=== PATIENT | female | born 1950 | race African-American/Black ===

== ENCOUNTER → 2016-11-19 | Outpatient (REF) | payer BC, MEDICARE ==
[~2016-11-19] MED LIST: DIFL150T PO; GLUC4CHW PO; INSUDET SC; INSUH10VL SC; ZEST1TAB6 PO
[2016-11-19 11:28] LABS: ALBUMIN 3.6 GM/DL (3.2-5.2); ALBUMIN/GLOBULIN RATIO 1.03 (1.00-1.93); ALKALINE PHOSPHATASE 81 U/L (45-117); ALT/SGPT 19 U/L (12-78); ANION GAP 8 MEQ/L (8-16); AST/SGOT 14 U/L (15-37); BILIRUBIN,TOTAL 0.7 MG/DL (0.2-1.0); BLOOD UREA NITROGEN 12 MG/DL (7-18); CALCIUM LEVEL 8.7 MG/DL (8.8-10.2); CARBON DIOXIDE LEVEL 26 MEQ/L (21-32); CHLORIDE LEVEL 108 MEQ/L (98-107); CHOLESTEROL LEVEL 221 MG/DL (<200); CREATININE FOR GFR 0.88 MG/DL (0.55-1.02); GLOMERULAR FILTRATION RATE > 60.0 (>45); GLUCOSE, FASTING 104 MG/DL (80-110); POTASSIUM SERUM 3.9 MEQ/L (3.5-5.1); SODIUM LEVEL 142 MEQ/L (136-145); TOTAL PROTEIN 7.1 GM/DL (6.4-8.2); TRIGLYCERIDES LEVEL 85 MG/DL (<150)
== END ==
LOC: M LABDRAW1 10:09
PROVIDERS: ATTEND Emergency Medicine
DX: E11.9 Type 2 diabetes mellitus without complications (principal); E78.2 Mixed hyperlipidemia

== ENCOUNTER → 2018-04-05 | Outpatient (CLI) | payer MEDICARE ==
[2018-04-05 10:33] LABS: ALBUMIN 3.3 GM/DL (3.2-5.2); ALBUMIN/GLOBULIN RATIO 0.92 (1.00-1.93); ALKALINE PHOSPHATASE 80 U/L (45-117); ALT/SGPT 24 U/L (12-78); ANION GAP 5 MEQ/L (8-16); AST/SGOT 16 U/L (7-37); BILIRUBIN,TOTAL 0.7 MG/DL (0.2-1.0); BLOOD UREA NITROGEN 12 MG/DL (7-18); CALCIUM LEVEL 8.7 MG/DL (8.8-10.2); CARBON DIOXIDE LEVEL 32 MEQ/L (21-32); CHLORIDE LEVEL 108 MEQ/L (98-107); CHOLESTEROL LEVEL 232 MG/DL (<200); CHOLESTEROL RISK RATIO 4.218 (<5); CREATININE FOR GFR 0.87 MG/DL (0.55-1.30); GLOMERULAR FILTRATION RATE > 60.0 (>45); GLUCOSE, FASTING 112 MG/DL (70-100); HDL CHOLESTEROL 55 MG/DL (>40); LDL CHOLESTEROL 152.2 MG/DL (<100); NON-HDL-C 177 MG/DL; POTASSIUM SERUM 4.4 MEQ/L (3.5-5.1); SODIUM LEVEL 145 MEQ/L (136-145); TOTAL PROTEIN 6.9 GM/DL (6.4-8.2); TRIGLYCERIDES LEVEL 124 MG/DL (<150)
[2018-04-05 10:45] LABS: ESTIMATED AVERAGE GLUCOSE 148 MG/DL (60-110); HEMOGLOBIN A1c 6.8 %
== END ==
LOC: M LAB 09:34
DX: I10 Essential (primary) hypertension (principal); E78.2 Mixed hyperlipidemia; E11.9 Type 2 diabetes mellitus without complications
CPT/HCPCS: 80053

== ENCOUNTER → 2019-04-18 | Outpatient (REF) | payer MEDICARE, OTHER ==
[~2019-04-18] MED LIST changes: -GLUC4CHW PO; +GLUC4CHW19 PO
[2019-04-18 14:06] LABS: BASO # 0.1 10^3/uL (0.0-0.2); BASO % 0.4 % (0.0-1.0); EOS # 0.2 10^3/uL (0.0-0.50); EOS % 1.7 % (0.0-3.0); HEMATOCRIT 44.8 % (36.0-47.0); HEMOGLOBIN 14.5 g/dl (12.0-15.5); LYMPH # 3.5 10^3/uL (1.5-4.5); LYMPH % 29.5 % (24.0-44.0); MEAN CORPUSCULAR HEMOGLOBIN 27.2 pg (27.0-33.0); MEAN CORPUSCULAR HGB CONC 32.4 g/dl (32.0-36.5); MEAN CORPUSCULAR VOLUME 84.1 fl (80.0-96.0); MONO # 0.7 10^3/uL (0.0-0.8); MONO % 6.3 % (0.0-5.0); NEUTROPHILS # 7.2 10^3/uL (1.8-7.7); NEUTROPHILS % 61.7 % (36.0-66.0); PLATELET COUNT, AUTOMATED 295 10^3/uL (150-450); RED BLOOD COUNT 5.33 10^6/uL (4.00-5.40); WHITE BLOOD COUNT 11.8 10^3/uL (4.0-10.0)
[2019-04-18 14:15] LABS: ALBUMIN 3.6 GM/DL (3.2-5.2); ALT/SGPT 21 U/L (12-78); BILIRUBIN,TOTAL 0.5 MG/DL (0.2-1.0); BLOOD UREA NITROGEN 13 MG/DL (7-18); CALCIUM LEVEL 9.6 MG/DL (8.8-10.2); CARBON DIOXIDE LEVEL 30 MEQ/L (21-32); CHLORIDE LEVEL 107 MEQ/L (98-107); CHOLESTEROL LEVEL 219 MG/DL (<200); CREATININE FOR GFR 1.01 MG/DL (0.55-1.30); GLOMERULAR FILTRATION RATE > 60.0 (>45); GLUCOSE, FASTING 146 MG/DL (70-100); HDL CHOLESTEROL 46 MG/DL (>40); LDL CHOLESTEROL 152 MG/DL (<100); NON-HDL-C 173 MG/DL; POTASSIUM SERUM 4.9 MEQ/L (3.5-5.1); SODIUM LEVEL 142 MEQ/L (136-145); TOTAL PROTEIN 7.4 GM/DL (6.4-8.2); TRIGLYCERIDES LEVEL 103 MG/DL (<150)
[2019-04-18 14:34] LABS: HEMOGLOBIN A1c 8.5 %
[2019-04-18 14:42] LABS: MALB URINE SIEMENS 36.1 MG/L; MAU/CREAT RATIO 17.2 MCG/MG (0.0-30.0)
== END ==
LOC: M LABDRAW1 12:34
PROVIDERS: ATTEND Physician Assistant
DX: Z00.00 Encounter for general adult medical examination without abnormal findings (principal); E11.9 Type 2 diabetes mellitus without complications; E78.2 Mixed hyperlipidemia; Z11.59 Encounter for screening for other viral diseases; R53.83 Other fatigue; Z79.4 Long term (current) use of insulin; Z79.899 Other long term (current) drug therapy
CPT/HCPCS: 36415; 80053; 80061; 82043; 82270; 83036; 85025; G0472

== ENCOUNTER 2019-09-15 13:11 | Emergency (ER) | payer MEDICARE, OTHER ==
[~2019-09-15] VITALS: Ht 160 cm; Wt 68.2 kg
[2019-09-15] MEDS ORDERED: FLUC200T2 PO (13:20)
[2019-09-15] MEDS ORDERED: TRUL10IN SQ (13:20)
--- NOTE | 2019-09-15 14:50 | REP ---
KUB ABDOMEN/PELVIS: Two KUB films of abdomen and pelvis performed. There is moderate fecal material in the right colon. No dilated small bowel loops are seen, with no radiographic evidence of small bowel obstruction. A couple of phleboliths are seen in the pelvis. There are degenerative changes of the spine and hips. IMPRESSION: Moderate fecal retention with no evidence of obstruction. Electronically Signed by Chaz Chowdhury MD 09/15/2019 04:34 P
[2019-09-15] MEDS ORDERED: KETOROLAC 30 MG/ML VIAL (J1885) IV ONE (15:15)
[2019-09-15] MEDS ORDERED: NS 500 ML IV ONE (15:15)
[2019-09-15] MEDS ORDERED: MAGNESIUM CITRATE 300 ML BTL PO ONE (15:15)
[2019-09-15 15:47] LABS: BASO # 0.1 10^3/uL (0.0-0.2); BASO % 0.4 % (0.0-1.0); EOS # 0.1 10^3/uL (0.0-0.5); EOS % 0.4 % (0.0-3.0); HEMATOCRIT 46.5 % (36.0-47.0); HEMOGLOBIN 15.1 g/dl (12.0-15.5); LYMPH # 2.2 10^3/uL (1.5-5.0); MEAN CORPUSCULAR HEMOGLOBIN 26.9 pg (27.0-33.0); MEAN CORPUSCULAR HGB CONC 32.5 g/dl (32.0-36.5); MEAN CORPUSCULAR VOLUME 82.9 fl (80.0-96.0); MONO # 0.6 10^3/uL (0.0-0.8); MONO % 3.6 % (0.0-5.0); NEUTROPHILS % 82.1 % (36.0-66.0); PLATELET COUNT, AUTOMATED 276 10^3/uL (150-450); RED BLOOD COUNT 5.61 10^6/uL (4.00-5.40)
[2019-09-15 16:19] LABS: ALBUMIN 3.5 GM/DL (3.2-5.2); ALT/SGPT 23 U/L (12-78); BILIRUBIN,DIRECT 0.2 MG/DL (0.0-0.2); BILIRUBIN,TOTAL 0.8 MG/DL (0.2-1.0); BLOOD UREA NITROGEN 10 MG/DL (7-18); CALCIUM LEVEL 9.4 MG/DL (8.8-10.2); CARBON DIOXIDE LEVEL 23 MEQ/L (21-32); CHLORIDE LEVEL 106 MEQ/L (98-107); CREATININE FOR GFR 1.14 MG/DL (0.55-1.30); GLOMERULAR FILTRATION RATE > 60.0 (>45); GLUCOSE, FASTING 234 MG/DL (70-100); LIPASE 302 U/L (73-393); POTASSIUM SERUM 4.1 MEQ/L (3.5-5.1); SODIUM LEVEL 139 MEQ/L (136-145); TOTAL PROTEIN 7.5 GM/DL (6.4-8.2)
[2019-09-15] MEDS ORDERED: MACR100C43 PO (17:25)
[2019-09-15] MEDS ORDERED: COLA100C5 PO (17:25)
[2019-09-15 18:09] VITALS: BP 127/61
== END 2019-09-15 18:18 | disposition home or self-care (01) ==
LOC: M ED 13:11
DX: K59.00 Constipation, unspecified (principal); N39.0 Urinary tract infection, site not specified; D72.829 Elevated white blood cell count, unspecified; E11.9 Type 2 diabetes mellitus without complications; Z79.84 Long term (current) use of oral hypoglycemic drugs; Z79.899 Other long term (current) drug therapy
CPT/HCPCS: 74018; 80048; 80076; 81001; 83690; 85025; 87086; 96361; 96374; 99284; J1885

== ENCOUNTER → 2019-12-01 | Outpatient (REF) | payer MEDICARE, OTHER ==
[~2019-12-01] MED LIST changes: +COLA100C5 PO; +FLUC200T2 PO; +MACR100C43 PO; +TRUL10IN SQ
[2019-12-01 10:11] LABS: ALBUMIN 3.5 GM/DL (3.2-5.2); ALT/SGPT 32 U/L (12-78); BILIRUBIN,TOTAL 0.8 MG/DL (0.2-1.0); BLOOD UREA NITROGEN 9 MG/DL (7-18); CALCIUM LEVEL 9.1 MG/DL (8.8-10.2); CARBON DIOXIDE LEVEL 31 MEQ/L (21-32); CHLORIDE LEVEL 104 MEQ/L (98-107); CREATININE FOR GFR 0.88 MG/DL (0.55-1.30); GLOMERULAR FILTRATION RATE > 60.0 (>45); GLUCOSE, FASTING 160 MG/DL (70-100); POTASSIUM SERUM 4.2 MEQ/L (3.5-5.1); SODIUM LEVEL 140 MEQ/L (136-145); TOTAL PROTEIN 7.2 GM/DL (6.4-8.2)
[2019-12-01 10:46] LABS: HEMOGLOBIN A1c 8.2 %
== END ==
LOC: M LABDRAW1 07:36
PROVIDERS: ATTEND Physician Assistant
DX: E11.9 Type 2 diabetes mellitus without complications (principal)

== ENCOUNTER → 2020-03-01 | Outpatient (CLI) | payer MEDICARE, OTHER ==
[2020-03-01 09:33] LABS: ALBUMIN 3.4 GM/DL (3.2-5.2); ALT/SGPT 37 U/L (12-78); BILIRUBIN,TOTAL 0.5 MG/DL (0.2-1.0); BLOOD UREA NITROGEN 13 MG/DL (7-18); CALCIUM LEVEL 8.8 MG/DL (8.8-10.2); CARBON DIOXIDE LEVEL 28 MEQ/L (21-32); CHLORIDE LEVEL 107 MEQ/L (98-107); CREATININE FOR GFR 0.92 MG/DL (0.55-1.30); GLOMERULAR FILTRATION RATE > 60.0 (>39); GLUCOSE, FASTING 205 MG/DL (70-100); POTASSIUM SERUM 4.1 MEQ/L (3.5-5.1); SODIUM LEVEL 141 MEQ/L (136-145); TOTAL PROTEIN 7.1 GM/DL (6.4-8.2)
[2020-03-01 09:54] LABS: HEMOGLOBIN A1c 8.7 %
== END ==
LOC: M LAB 07:57
PROVIDERS: ATTEND Physician Assistant
DX: E11.9 Type 2 diabetes mellitus without complications (principal)

== ENCOUNTER 2020-03-16 07:55 | Outpatient (RCR) | payer MEDICARE, OTHER | END 2020-03-20 | LOC: M PT 07:55 | PROVIDERS: ATTEND Physician Assistant | DX: M25.512 Pain in left shoulder (principal) ==

== ENCOUNTER → 2020-04-20 | Outpatient (RCR) | payer MEDICARE, OTHER | LOC: M PT 03-21 08:34 | PROVIDERS: ATTEND Physician Assistant | DX: M25.512 Pain in left shoulder (principal) ==

== ENCOUNTER → 2020-05-26 | Outpatient (CLI) | payer MEDICARE, OTHER ==
[2020-05-26 13:29] LABS: BLOOD UREA NITROGEN 12 MG/DL (7-18); CALCIUM LEVEL 9.6 MG/DL (8.8-10.2); CARBON DIOXIDE LEVEL 30 MEQ/L (21-32); CHLORIDE LEVEL 102 MEQ/L (98-107); CREATININE FOR GFR 1.02 MG/DL (0.55-1.30); GLOMERULAR FILTRATION RATE > 60.0 (>39); GLUCOSE, FASTING 334 MG/DL (70-100); POTASSIUM SERUM 4.1 MEQ/L (3.5-5.1); SODIUM LEVEL 137 MEQ/L (136-145)
[2020-05-26 13:37] LABS: HEMOGLOBIN A1c 13.3 %
[2020-05-26 13:41] LABS: MALB URINE SIEMENS 31.3 MG/L; MAU/CREAT RATIO 19.8 MCG/MG (0.0-30.0)
== END ==
LOC: M LAB 12:20
PROVIDERS: ATTEND Physician Assistant
DX: E11.9 Type 2 diabetes mellitus without complications (principal)

== ENCOUNTER → 2020-07-30 | Outpatient (REF) | payer MEDICARE, OTHER | LOC: M LAB REF 13:13 | PROVIDERS: ATTEND Physician Assistant | DX: Z12.11 Encounter for screening for malignant neoplasm of colon (principal) ==

== ENCOUNTER → 2020-08-30 | Outpatient (CLI) | payer MEDICARE, OTHER ==
[2020-08-30 12:45] LABS: CHOLESTEROL RISK RATIO 4.166 (<5)
[2020-08-30 13:13] LABS: HEMOGLOBIN A1c 9.7 %
== END ==
LOC: M LAB 11:17
PROVIDERS: ATTEND Family Medicine
DX: E11.65 Type 2 diabetes mellitus with hyperglycemia (principal)

== ENCOUNTER 2021-02-15 12:53 | Emergency (ER) | payer MEDICARE, OTHER ==
[~2021-02-15] VITALS: Ht 160 cm; Wt 64.1 kg
[~2021-02-15 12:53] MED LIST changes: -GLUC4CHW19 PO; +SFHGLU4TA PO
[2021-02-15] MEDS ORDERED: METF-838 PO (13:00)
[2021-02-15 14:45] LABS: HEMATOCRIT 43.4 % (36.0-47.0); HEMOGLOBIN 14.3 g/dl (12.0-15.5); MEAN CORPUSCULAR HEMOGLOBIN 26.7 pg (27.0-33.0); MEAN CORPUSCULAR HGB CONC 32.9 g/dl (32.0-36.5); PLATELET COUNT, AUTOMATED 339 10^3/uL (150-450); RED BLOOD COUNT 5.36 10^6/uL (4.00-5.40); WHITE BLOOD COUNT 10.7 10^3/uL (4.0-10.0)
[2021-02-15 15:30] LABS: ATYPICAL LYMPH 16 % (0-5); LYMPHOCYTES 8 % (16-44); MONOCYTES 2 % (0-5); NEUTROPHILS 70 % (28-66); PLATELET ESTIMATE NORMAL (NORMAL)
[2021-02-15] MEDS ORDERED: CEPHALEXIN 500 MG CAP PO ONE (16:20)
[2021-02-15] MEDS ORDERED: POTASSIUM CHLORIDE 10 MEQ SR TABLET PO ONE (16:20)
[2021-02-15] MEDS ORDERED: CEPH500C PO (16:21)
[2021-02-15 16:50] VITALS: BP 121/60
== END 2021-02-15 16:51 | disposition home or self-care (01) ==
LOC: M ED 12:53
DX: N39.0 Urinary tract infection, site not specified (principal); E87.6 Hypokalemia; E11.9 Type 2 diabetes mellitus without complications; Z79.84 Long term (current) use of oral hypoglycemic drugs

== ENCOUNTER 2021-02-21 05:49 | Emergency (ER) | payer MEDICARE, OTHER ==
[~2021-02-21] VITALS: Ht 160 cm; Wt 66.7 kg
[~2021-02-21 05:49] MED LIST changes: +CEPH500C PO; +METF-838 PO
[2021-02-21 06:35] LABS: BASO # 0.1 10^3/uL (0.0-0.2); BASO % 0.5 % (0.0-1.0); EOS # 0.2 10^3/uL (0.0-0.5); EOS % 1.4 % (0.0-3.0); HEMATOCRIT 38.4 % (36.0-47.0); HEMOGLOBIN 12.5 g/dl (12.0-15.5); LYMPH # 3.1 10^3/uL (1.5-5.0); LYMPH % 25.4 % (24.0-44.0); MEAN CORPUSCULAR HEMOGLOBIN 26.6 pg (27.0-33.0); MEAN CORPUSCULAR HGB CONC 32.6 g/dl (32.0-36.5); MEAN CORPUSCULAR VOLUME 81.7 fl (80.0-96.0); MONO # 1.4 10^3/uL (0.0-0.8); MONO % 11.9 % (2.0-8.0); NEUTROPHILS # 7.2 10^3/uL (1.5-8.5); NEUTROPHILS % 59.6 % (36.0-66.0); PLATELET COUNT, AUTOMATED 473 10^3/uL (150-450); WHITE BLOOD COUNT 12.1 10^3/uL (4.0-10.0)
--- NOTE | 2021-02-21 06:46 | REPVR ---
PROCEDURE INFORMATION: Exam: XR Chest Exam date and time: 02/21/2021 6:30 AM Age: 70 years old Clinical indication: Other: Chest pain TECHNIQUE: Imaging protocol: XR of the chest. Views: 1 view. COMPARISON: No relevant prior studies available. FINDINGS: Lungs: Low lung volumes. Mild right lung base atelectasis. Small ground-glass opacities in the left lung base may represent atelectasis, however, pneumonia should be ruled out clinically. Pleural spaces: Blunting of bilateral CP angles likely small effusions. Heart/Mediastinum: Unremarkable. No cardiomegaly. Bones/joints: Unremarkable. IMPRESSION: Low lung volumes. Mild right lung base atelectasis. Small ground-glass opacities in the left lung base may represent atelectasis, however, pneumonia should be ruled out clinically. Blunting of bilateral CP angles likely small effusions. Electronically signed by: Kacy Villasenor On 02/21/2021 06:45:46 AM
[2021-02-21 07:06] LABS: BLOOD UREA NITROGEN 8 MG/DL (7-18); CALCIUM LEVEL 8.9 MG/DL (8.8-10.2); CARBON DIOXIDE LEVEL 29 MEQ/L (21-32); CHLORIDE LEVEL 104 MEQ/L (98-107); CREATININE FOR GFR 0.79 MG/DL (0.55-1.30); GLOMERULAR FILTRATION RATE > 60.0 (>39); GLUCOSE, FASTING 190 MG/DL (70-100); POTASSIUM SERUM 4.3 MEQ/L (3.5-5.1); SODIUM LEVEL 140 MEQ/L (136-145)
[2021-02-21] MEDS ORDERED: KETOROLAC 30 MG/ML 1ML VIAL IV ONE (07:35)
[2021-02-21] MEDS ORDERED: ACETAMINOPHEN 500 MG TAB PO ONE (07:35)
[2021-02-21 07:52] LABS: CPK CREATINE PHOSPHOKINASE 49 U/L (26-192)
[2021-02-21] MEDS ORDERED: ISOVUE-370 76% 100ML VIAL As Ordered ONE (07:58)
[2021-02-21 08:02] LABS: ALBUMIN 2.5 GM/DL (3.2-5.2); BILIRUBIN,DIRECT 0.1 MG/DL (0.0-0.2); BILIRUBIN,TOTAL 0.5 MG/DL (0.2-1.0); TOTAL PROTEIN 7.3 GM/DL (6.4-8.2)
[2021-02-21 08:06] LABS: ERYTHROCYTE SEDIMENTATION RATE 59 mm/hr (0-30)
--- NOTE | 2021-02-21 08:30 | REP ---
INDICATION: pleuritic CP COMPARISON: None. TECHNIQUE: Axial contrast enhanced images from the thoracic inlet to the upper abdomen using pulmonary embolus technique with multiplanar re-formations. 75 ml Isovue 370 intravenous contrast material administered without complication. This CT examination was performed using the following dose reduction techniques: Automated exposure control, adjustment of mA and/or kv according to the patient's size, and use of iterative reconstruction technique. FINDINGS: Satisfactory enhancement of the pulmonary vasculature is achieved and 2-3rd order pulmonary emboli to the bilateral lower lobes noted along with moderate peripheral based consolidations involving the left lower lobe, right lower lobe, and lingula. Significant mediastinal and hilar adenopathy is appreciated. No effusion. No pneumothorax. Thoracic aorta appears normal. Atherosclerotic changes to the coronary arteries noted without cardiomegaly or pericardial effusion. Upper abdomen demonstrates normal bilateral adrenal glands. Surrounding musculoskeletal structures are intact. IMPRESSION: 1. Pulmonary emboli to the bilateral lower lobes with associated peripheral areas of atelectasis/consolidation. 2. Significant mediastinal/hilar adenopathy warrants further investigation. <Electronically signed by Shon López > 02/21/21 [id number]
[2021-02-21] MEDS ORDERED: CEPH500C PO (09:31)
[2021-02-21] MEDS ORDERED: ALBU8.5H INH (09:31)
--- NOTE | 2021-02-21 09:50 | REP ---
INDICATION: PE ?dvt COMPARISON: None. TECHNIQUE: Chowdhury scale and color Doppler evaluation using linear high frequency transducer. FINDINGS: Ultrasound examination of the right and left lower extremity deep venous structures from the common femoral vein through the calf/ankle to include the peroneal, and tibial veins demonstrates normal compressibility flow and wave patterns in response to respiration and augmentation. There is no evidence for deep venous thrombosis. Contralateral CFV is patent and normal. IMPRESSION: No evidence for deep venous thrombosis. <Electronically signed by Shon López > 02/21/21 0935
[2021-02-21] MEDS ORDERED: ELIQ5TAB PO (10:43)
--- NOTE | 2021-02-21 11:29 | CR.PDOC ---
General Date of Consultation: Feb 21, 2021 Referring Provider: Melani Lindsay MD Consultation REASON FOR CONSULTATION/CHIEF COMPLAINT: Pulmonary Embolus HISTORY OF PRESENT ILLNESS: Mrs. Cruz is a 70 year old female with NIDDM and recent COVID 19 respiratory infection who presents to the ED for chest pain. On February 10 she was not feeling well. She had malaise, dyspnea, and diarrhea. She went for testing and was found to be COVID 19 positive. She was told to self quarantine at home. Patient believes this is the 10th day. Since being tested she feels much better. Denies fever, malaise, dyspnea, cough, or diarrhea. About 3 days ago, she started to have chest pain which was worse when she lies down and better when sitting up. She found that she could sleep sitting up. Otherwise, she had pleuritic chest pain. She came to the ED for evaluation. While in the ED, her vitals have been stable. She had no tachycardia, no tachypnea, and no hypoxia. Her troponin was negative. CT angio of the chest was positive for bilateral pulmonary emboli to the bilateral lower lobes. I went down to the ED to evaluate the patient. She was very cheerful and not in any distress. She completed her sentences without problems. She denied any fever/chills, dyspnea, cough, abdominal pain, dysuria, or rashes. I gave her an option to either be admitted for observation overnight and be discharged tomorrow morning or to go home today with anticoagulation. She wanted to go home. I will send apixaban to her pharmacy. I discuss this with the ED attending, Dr. Gonzalez. Patient also requested that I touch base with her PCP's office. I called and relayed this information to Dr. Steen's nurse. ALLERGIES: Please see below. HOME MEDICATIONS: Please see below. PAST MEDICAL HISTORY: 1. NIDDM 2 2. COVID 19 infection in January 2021 PAST SURGICAL HISTORY: 1. Hysterectomy FAMILY HISTORY: Father: Heart disease and pacemaker SOCIAL HISTORY: Tobacco use: Former Illicit drug use: Denies REVIEW OF SYSTEMS: CONSTITUTIONAL: Denies any fever or chills. ENT: Denies sore throat. RESPIRATORY: Denies shortness of breath. Denies cough. CARDIOVASCULAR: Reports pleuritic chest pain. GASTROINTESTINAL: Denies abdominal pain. Denies diarrhea. GENITOURINARY: Denies dysuria. CUTANEOUS: Denies rashes. MUSCULOSKELETAL: Denies muscle weakness. NEUROLOGICAL: Sometimes has neuropathy of feet. PSYCHOLOGICAL: Denies anxiety. Denies depression. PHYSICAL EXAMINATION: VITAL SIGNS: Please see below. GENERAL: Comfortable, in no apparent distress. HEENT: Head normocephalic/atraumatic, EOMI, sclera clear. NECK: Supple. RESPIRATORY: Lungs clear to auscultation bilaterally, no rales, wheeze or rhonchi. CARDIOVASCULAR: Regular rate and rhythm. ABDOMEN: Soft, nontender, no guarding or rebound tenderness. Normal bowel sounds. MUSCLE SKELETAL: Muscle strength 5/5 in all extremities. NEUROLOGICAL: CN 312 grossly intact, no focal deficits noted. PSYCHOLOGICAL: Normal mood and affect LABORATORY DATA: Please see below. ASSESSMENT/PLAN: 1. Bilateral pulmonary embolic -Most likely provoked from COVID 19 infection -Patient will most likely need at least 3 month of anticoagulation -PESI score of 70 which is Class II, Low Risk -Follow instruction for apixaban. 10mg BID for 1 week followed by 5mg BID 2. Diabetes mellitus -Continue diabetic medication 3. Significant mediastinal/hilar adenopathy -Possible Sarcoidosis vs Malignancy vs Viral infection -Patient may need outpatient pulmonary referral for biopsy Disposition: Follow up with your PCP for ER follow up. Vital Signs/I&O Vital Signs Date Time Temp Pulse Resp B/P (MAP) Pulse Ox O2 Delivery O2 Flow Rate FiO2 02/21/21 08:49 76 16 96 Room Air 02/21/21 08:05 127/62 (83) 02/21/21 05:50 97.9 Laboratory Data Labs 24H Laboratory Tests 2 02/21/21 06:24: Immature Granulocyte % (Auto) 1.2, Neutrophils (%) (Auto) 59.6, Lymphocytes (%) (Auto) 25.4, Monocytes (%) (Auto) 11.9H, Eosinophils (%) (Auto) 1.4, Basophils (%) (Auto) 0.5, Neutrophils # (Auto) 7.2, Lymphocytes # (Auto) 3.1, Monocytes # (Auto) 1.4H, Eosinophils # (Auto) 0.2, Basophils # (Auto) 0.1, Nucleated Red Blood Cells % (auto) 0.0, Erythrocyte Sedimentation Rate 59H, Anion Gap 7L, Glomerular Filtration Rate > 60.0, Calcium Level 8.9, Total Bilirubin 0.5, Direct Bilirubin 0.1, Aspartate Amino Transf (AST/SGOT) 23, Alanine Aminotransferase (ALT/SGPT) 29, Alkaline Phosphatase 74, Total Creatine Kinase 49, Total Protein 7.3, Albumin 2.5L, Albumin/Globulin Ratio 0.5L, Lipase 364 02/21/21 06:29: POC Troponin I (Misc) 0.00 CBC/BMP Laboratory Tests 02/21/21 06:24 Allergies Coded Allergies: No Known Allergies (Unverified , 05/23/15) Home Medications Scheduled Apixaban (Eliquis) 5 Mg Tablet, 5 MG PO ASDIRECTED, #74 10 MG (2 TABS) TWICE PER DAY FOR 7 DAYS THEN 5 MG (1 TAB) TWICE PER DAY Cephalexin (Cephalexin) 500 Mg Capsule, 500 MG PO BID, (Reported) FILLED 02/15/21 FOR 5 DAYS Metformin HCl (Metformin HCl ER) 500 Mg Tab.er.24h, 1,000 MG PO QHS, (Reported) Scheduled PRN Albuterol Sulfate (Albuterol Sulfate Hfa) 8.5 Gm Hfa.aer.ad, 2 PUFFS INH QID PRN for SHORTNESS OF BREATH, (Reported) MAGDALENA MENDEZ DO Feb 21, 2021 11:29
[2021-02-21 11:34] VITALS: BP 109/55
--- NOTE | 2021-02-21 19:48 | ECGEPIP ---
[facility] - ED Test Date: 2021-02-21 Pat Name: YVON CLAY Department: Room: - Gender: Female Block Tester: sho : 1950 Requested By: MARK Green Order Number: [id number] Reading MD: Long Roberson Measurements Intervals [place] Rate: 86 P: 25 IA: 126 QRS: 19 QRSD: 80 T: 16 QT: 370 QTc: 442 Interpretive Statements Normal sinus rhythm POOR R WAVE PROGRESSION NONSPECIFIC T WAVE ABNORMALITY(S) NO PRIORS FOR COMPARISON Electronically Signed on 02-21-2021 19:48:10 EDT by Long Roberson
== END 2021-02-21 11:44 | disposition home or self-care (01) ==
LOC: M ED 05:49
DX: I26.99 Other pulmonary embolism without acute cor pulmonale (principal); E11.9 Type 2 diabetes mellitus without complications; Z79.899 Other long term (current) drug therapy; Z79.84 Long term (current) use of oral hypoglycemic drugs; Z79.01 Long term (current) use of anticoagulants; Z87.891 Personal history of nicotine dependence
CPT/HCPCS: 71045; 71275; 80048; 80076; 82550; 83690; 84484; 85025; 85652; 93005; 93041; 93970; 94760; 96374; 99285; J1885; Q9967

== ENCOUNTER → 2021-03-11 | Outpatient (CLI) | payer MEDICARE, OTHER ==
[~2021-03-11] MED LIST changes: +ALBU8.5H INH; +ELIQ5TAB PO
[2021-03-11 12:13] LABS: HEMOGLOBIN A1c 8.8 %
[2021-03-11 12:43] LABS: ALBUMIN 3.2 GM/DL (3.2-5.2); ALT/SGPT 22 U/L (12-78); BILIRUBIN,TOTAL 0.4 MG/DL (0.2-1.0); BLOOD UREA NITROGEN 9 MG/DL (7-18); CALCIUM LEVEL 8.7 MG/DL (8.8-10.2); CARBON DIOXIDE LEVEL 29 MEQ/L (21-32); CHLORIDE LEVEL 106 MEQ/L (98-107); CHOLESTEROL LEVEL 234 MG/DL (<200); CHOLESTEROL RISK RATIO 4.875 (<5); CREATININE FOR GFR 0.69 MG/DL (0.55-1.30); GLOMERULAR FILTRATION RATE > 60.0 (>39); GLUCOSE, FASTING 119 MG/DL (70-100); HDL CHOLESTEROL 48 MG/DL (>40); LDL CHOLESTEROL 163 MG/DL (<100); NON-HDL-C 186 MG/DL; POTASSIUM SERUM 3.9 MEQ/L (3.5-5.1); SODIUM LEVEL 140 MEQ/L (136-145); TRIGLYCERIDES LEVEL 115 MG/DL (<150)
== END ==
LOC: M LAB 09:57
PROVIDERS: ATTEND Family Medicine
DX: E11.65 Type 2 diabetes mellitus with hyperglycemia (principal)

== ENCOUNTER → 2021-06-17 | Outpatient (CLI) | payer MEDICARE, OTHER ==
[2021-06-17 10:05] LABS: BASO % 0.4 % (0.0-1.0); EOS # 0.3 10^3/uL (0.0-0.5); EOS % 2.5 % (0.0-3.0); HEMATOCRIT 43.6 % (36.0-47.0); HEMOGLOBIN 13.9 g/dl (12.0-15.5); LYMPH # 3.8 10^3/uL (1.5-5.0); LYMPH % 36.5 % (24.0-44.0); MEAN CORPUSCULAR HEMOGLOBIN 26.5 pg (27.0-33.0); MEAN CORPUSCULAR HGB CONC 31.9 g/dl (32.0-36.5); MEAN CORPUSCULAR VOLUME 83.2 fl (80.0-96.0); MONO # 0.7 10^3/uL (0.0-0.8); MONO % 6.4 % (2.0-8.0); NEUTROPHILS # 5.6 10^3/uL (1.5-8.5); PLATELET COUNT, AUTOMATED 267 10^3/uL (150-450); RED BLOOD COUNT 5.24 10^6/uL (4.00-5.40); WHITE BLOOD COUNT 10.4 10^3/uL (4.0-10.0)
[2021-06-17 10:17] LABS: HEMOGLOBIN A1c 6.9 %
[2021-06-17 10:23] LABS: ALBUMIN 3.3 GM/DL (3.2-5.2); ALT/SGPT 26 U/L (12-78); BILIRUBIN,TOTAL 0.5 MG/DL (0.2-1.0); BLOOD UREA NITROGEN 14 MG/DL (7-18); CALCIUM LEVEL 9.3 MG/DL (8.8-10.2); CARBON DIOXIDE LEVEL 31 MEQ/L (21-32); CHLORIDE LEVEL 110 MEQ/L (98-107); CHOLESTEROL LEVEL 157 MG/DL (<200); CHOLESTEROL RISK RATIO 2.492 (<5); CREATININE FOR GFR 0.84 MG/DL (0.55-1.30); GLOMERULAR FILTRATION RATE > 60.0 (>39); GLUCOSE, FASTING 127 MG/DL (70-100); HDL CHOLESTEROL 63 MG/DL (>40); LDL CHOLESTEROL 83 MG/DL (<100); NON-HDL-C 94 MG/DL; POTASSIUM SERUM 4.7 MEQ/L (3.5-5.1); SODIUM LEVEL 144 MEQ/L (136-145); TOTAL PROTEIN 6.8 GM/DL (6.4-8.2); TRIGLYCERIDES LEVEL 56 MG/DL (<150)
[2021-06-17 10:29] LABS: MALB URINE SIEMENS 19.4 MG/L; MAU/CREAT RATIO 15.7 MCG/MG (0.0-30.0)
== END ==
LOC: M LAB 08:53
PROVIDERS: ATTEND Family Medicine
DX: E11.65 Type 2 diabetes mellitus with hyperglycemia (principal)

== ENCOUNTER → 2021-06-19 | Outpatient (CLI) | payer MEDICARE, OTHER ==
--- NOTE | 2021-06-19 08:43 | REP ---
INDICATION: ABNORMAL FINDING OF LUNG FIELD. Prior CT pulmonary angiogram from February 21, 2021 showed a bilateral pulmonary emboli, evidence of COVID pneumonia, and hilar or mediastinal lymphadenopathy. COMPARISON: Comparison CT pulmonary angiogram is from February 21, 2021. TECHNIQUE: Helical scanning is acquired. 3 mm axial images are generated. Coronal and sagittal MPR and coronal MIP images are generated. FINDINGS: A noncontrast CT study was performed as requested. The bilateral hilar nodes appear improved or resolved although this is somewhat difficult in the absence of contrast. The AP window region lymph nodes seen on the prior study is definitely smaller, 6 mm in short axis dimension today, previously 14 mm. No new adenopathy is appreciated. No comment can be made about the status of the pulmonary emboli in the absence of IV contrast. The peripheral infiltrates have improved bilaterally and there are mild areas of subpleural fibrosis in the left lower lobe, right lower lobe and left upper lobe where prior study showed infiltrates. No new infiltrate is seen. There is no evidence of pleural or pericardial effusion. Is in the upper abdomen normal adrenal glands are observed. The visualized upper abdominal structures are otherwise unremarkable. Multiple nodular densities are noted in the breast soft tissues bilaterally, no one appears suspicious over any other. No bony destructive lesion is appreciated. IMPRESSION: Previously noted pulmonary parenchymal infiltrates have resolved and there is some subpleural fibrosis bilaterally. The adenopathy is improved. <Electronically signed by Cb Amato > 06/19/21 [id number]
== END ==
LOC: M PLAIMG 07:11
PROVIDERS: ATTEND Nurse Practitioner Family
DX: R91.8 Other nonspecific abnormal finding of lung field (principal)

== ENCOUNTER 2021-09-07 05:20 | Observation (INO) | payer MEDICARE, OTHER ==
[2021-09-07] MEDS ORDERED: LISI-898 PO (05:58)
[2021-09-07] MEDS ORDERED: ATOR1TAB19 PO (05:59)
[2021-09-07 06:08] LABS: BASO % 0.4 % (0.0-1.0); EOS # 0.3 10^3/uL (0.0-0.5); EOS % 2.5 % (0.0-3.0); HEMATOCRIT 44.3 % (36.0-47.0); HEMOGLOBIN 14.5 g/dl (12.0-15.5); LYMPH # 2.5 10^3/uL (1.5-5.0); LYMPH % 24.6 % (24.0-44.0); MEAN CORPUSCULAR HGB CONC 32.7 g/dl (32.0-36.5); MEAN CORPUSCULAR VOLUME 82.3 fl (80.0-96.0); MONO # 0.8 10^3/uL (0.0-0.8); NEUTROPHILS # 6.4 10^3/uL (1.5-8.5); NEUTROPHILS % 64.2 % (36.0-66.0); PLATELET COUNT, AUTOMATED 274 10^3/uL (150-450); RED BLOOD COUNT 5.38 10^6/uL (4.00-5.40)
[2021-09-07 06:19] LABS: BLOOD UREA NITROGEN 10 MG/DL (7-18); CALCIUM LEVEL 8.8 MG/DL (8.8-10.2); CARBON DIOXIDE LEVEL 28 MEQ/L (21-32); CHLORIDE LEVEL 110 MEQ/L (98-107); CREATININE FOR GFR 0.88 MG/DL (0.55-1.30); GLOMERULAR FILTRATION RATE > 60.0 (>39); GLUCOSE, FASTING 129 MG/DL (70-100); POTASSIUM SERUM 3.7 MEQ/L (3.5-5.1); SODIUM LEVEL 143 MEQ/L (136-145)
[2021-09-07 06:21] LABS: INR 0.94; PARTIAL THROMBOPLASTIN TIME 29.1 SECONDS (25.9-37.0); PROTHROMBIN TIME 12.9 SECONDS (12.7-14.5)
[2021-09-07 06:23] LABS: MB/CK RELATIVE INDEX 1.96 (< OR =4)
--- NOTE | 2021-09-07 07:26 | REPVR ---
PROCEDURE INFORMATION: Exam: XR Chest Exam date and time: 09/07/2021 5:56 AM Age: 71 years old Clinical indication: Pain; Other: CVA TECHNIQUE: Imaging protocol: XR of the chest. Views: 1 view. COMPARISON: CT Chest without contrast 06/19/2021 7:52 AM FINDINGS: Lungs: Unremarkable. No consolidation. Pleural spaces: Unremarkable. No pleural effusion. No pneumothorax. Heart/Mediastinum: Unremarkable. No cardiomegaly. Bones/joints: Unremarkable. IMPRESSION: No acute findings. Electronically signed by: Ye Godoy On 09/07/2021 07:25:54 AM
--- NOTE | 2021-09-07 07:26 | REPVR ---
PROCEDURE INFORMATION: Exam: CT Head Without Contrast Exam date and time: 09/07/2021 5:27 AM Age: 71 years old Clinical indication: Dizziness; Additional info: CVA - nursing interventions must not delay CT TECHNIQUE: Imaging protocol: Computed tomography of the head without contrast. Radiation optimization: All CT scans at this facility use at least one of these dose optimization techniques: automated exposure control; mA and/or kV adjustment per patient size (includes targeted exams where dose is matched to clinical indication); or iterative reconstruction. COMPARISON: No relevant prior studies available. FINDINGS: Brain: Normal. No hemorrhage. Unremarkable white matter. No mass effect. Cerebral ventricles: No ventriculomegaly. Paranasal sinuses: Visualized sinuses are unremarkable. No fluid levels. Mastoid air cells: Visualized mastoid air cells are well aerated. Bones/joints: Unremarkable. No acute fracture. Soft tissues: Unremarkable. IMPRESSION: No acute intracranial abnormality. Electronically signed by: Ye Godoy On 09/07/2021 07:25:24 AM
[2021-09-07] MEDS ORDERED: NS 1,000 ML IV SCH (08:00)
[2021-09-07] MEDS ORDERED: ONDANSETRON 4MG/2ML VIAL IV ONE (08:00)
[2021-09-07] MEDS: DOCUSATE SODIUM 100MG CAPSULE PO SCH ×2 (09:00→20:15)
[2021-09-07] MEDS ORDERED: ELIQ5TAB PO (09:20)
[2021-09-07] MEDS ORDERED: HOME MED LIST COMPLETE! XX SCH (09:25)
[2021-09-07] MEDS ORDERED: MAALOX 30 ML SUSP *UDC PO PRN (09:35)
[2021-09-07] MEDS ORDERED: ACETAMINOPHEN TAB 650MG DOSE (2X325MG) PO PRN (09:35)
[2021-09-07] MEDS ORDERED: MOM 30ML SUSPENSION UDC PO PRN (09:35)
[2021-09-07 11:00] VITALS: BP 110/64
[2021-09-07 12:00] VITALS: BP 110/64
[2021-09-07] MEDS: HumaLOG INSULIN (NovoLOG) PER UNIT SC SCH ×3 (12:00→20:15)
[2021-09-07 12:42] LABS: HEMOGLOBIN A1c 6.8 %
--- NOTE | 2021-09-07 12:42 | HPEPDOC ---
[facility] Medical History & Physical Date of Admission Sep 07, 2021 Date of Service: Sep 07, 2021 Primary Care Physician: Becca Santiago MD Attending Physician: KEDAR MALIN MD History and Physical CHIEF COMPLAINT: Dizziness HISTORY OF PRESENT ILLNESS: Patient is a 71-year-old -[place] female who presented to the ED today (09/07/2020) with a 4-day history of ongoing diz ziness. Describes the dizziness as feeling unbalanced, and wobbling [id number]. Says this happens every time she stands up, and never subsides, and continues if he tries to move. She had dizziness like this in the past before (last time 5 to 6 years ago), but has never experienced the episodes lasting for this long (would usually last a day). Says the dizziness is relieved when she sits down and rests, lays down, or when sleeping. She states her intake of nutrition and liquids has been normal, but has not eaten a full meal to her standard in the last 3 days. She has not tried anti-nausea medication. She denies having a history of documented vertigo. In the emergency room upon improvement of patient's head patient had reported increased symptoms of dizziness. PAST MEDICAL HISTORY: 1. Pulmonary embolism (February 21, 2021), currently on Eliquis. 2. Diabetes type 2 on metformin. 3. Hypertension 4. Hyperlipidemia 5. Fibroids on uterus, fallopian tubes, ovaries. PAST SURGICAL HISTORY: 1. Hysterectomy due to fibroids. SOCIAL HISTORY: Marital status: ( the last 10 years however). 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 REVIEW OF SYSTEMS: CONSTITUTIONAL: Denies fever, chills. HEENT: Denies hearing loss, sinus issues, tinnitus. CARDIOVASCULAR: Denies chest pain, tachycardia. RESPIRATORY: Denies shortness of breath; reports cough to aid in expectorating phlegm. GASTROINTESTINAL: Denies diarrhea, or blood in stool reports nausea and vomiti ng-like sensation when coughs to expel phlegm. GENITOURINARY: Denies pain with urination, hematuria. MUSCULOSKELETAL: Reports feeling unsteady on legs. NEUROLOGICAL: Denies headache; reports dizziness for the last 4 days. HOME MEDICATIONS: Please see below. PHYSICAL EXAMINATION: VITAL SIGNS: Temperature 97.8, pulse 64, respiratory rate 18, blood pressure Orthostatic vitals of 136/72 supine, 161/76 sitting, 158/80 standing, pulse oximetry 100% on room air. GENERAL APPEARANCE: 71-year-old, -Fijian female, lying in bed, no acute distress. HEENT: Head normocephalic atraumatic, no sinus pressure on palpation; eyes noninjected conjunctiva, EOMI but reports discomfort on extreme ends of peripheral vision and looking up and down; ears normal tympanic membrane left, wax present in right ear but does not look to be impacted. CARDIOVASCULAR: Regular rate and rhythm, no murmurs, rubs, gallops. LUNGS: CTA bilaterally. ABDOMEN: Normoactive bowel sounds, nontender to palpation no rebound tenderness or guarding. MUSCULOSKELETAL: Strength 5 out of 5 in upper and lower extremities. EXTREMITIES: No diabetic foot ulcer seen on feet, no lower extremity edema appreciated, dorsalis pedal pulses 2+. NEUROLOGICAL: Negative [id number] and Romberg test. PSYCHIATRIC: Alert and oriented x4. LABORATORY DATA: See below. IMAGING: CXR 09/07/2021: Lungs: Unremarkable. No consolidation. Pleural spaces: Unremarkable. No pleural effusion. No pneumothorax. Heart/Mediastinum: Unremarkable. No cardiomegaly. Bones/joints: Unremarkable. Head CT 09/07/2021: Brain: Normal. No hemorrhage. Unremarkable white matter. No mass effect. Cerebral ventricles: No ventriculomegaly. Paranasal sinuses: Visualized sinuses are unremarkable. No fluid levels. Mastoid air cells: Visualized mastoid air cells are well aerated. Bones/joints: Unremarkable. No acute fracture. Soft tissues: Unremarkable. MICROBIOLOGY: Please see below. ASSESSMENT: Patient is a 71-year-old -F[place]ian female, who presented today to the ED with 4-day history of dizziness of unknown etiology. She recalls having episodes of dizziness in the past, but none of them have lasted for long. PLAN: #. Dizziness - likely 2/2 Vertigo - likely 2/2 peripheral etiology, less likely 2/2 central etiology (r/o CVA) -CVA? -CT negative for any hemorrhagic pathology -MRI ordered to rule out cerebrovascular events -Patient moved to PCU on all risk precautions and telemetry -We will downgrade to MedSurg floor pending MRI results -Benign peripheral paroxysmal vertigo? -Patient denies sensation of room spinning, but does endorse dizziness with head manipulation -Per RADHA Lala, patient had a positive HINTS exam indicating peripheral vertigo -Trial of meclizine started to see if that alleviates symptoms -PT/OT eval for vestibular therapy -Ondansetron added for nausea -Metabolic etiology? -A1c of 6.8 -TSH within normal limits at 2.720 -B12 pending #. Type 2 diabetes -Hold home Metformin -Begin sliding scale with AC at bedtime #. Hypertension -Continue with Lisinopril #. Hypercholesterolemia -Continue with atorvastatin #. Hx of PE - February 21, 2021 - c/w Eliquis #. DVT prophylaxis - c/w Eliquis Disposition: Pending MRI results, will transition to [facility] if appropriate Vital Signs Vital Signs Date Time Temp Pulse Resp B/P (MAP) Pulse Ox O2 Delivery O2 Flow Rate FiO2 09/07/21 08:25 67 136/72 (93) 70 161/76 (104) 76 158/80 (106) 09/07/21 07:26 97.8 18 100 Laboratory Data Labs 24H Laboratory Tests 2 09/07/21 05:27: Immature Granulocyte % (Auto) 0.3, Neutrophils (%) (Auto) 64.2, Lymphocytes (%) (Auto) 24.6, Monocytes (%) (Auto) 8.0, Eosinophils (%) (Auto) 2.5, Basophils (%) (Auto) 0.4, Neutrophils # (Auto) 6.4, Lymphocytes # (Auto) 2.5, Monocytes # (Auto) 0.8, Eosinophils # (Auto) 0.3, Basophils # (Auto) 0.0, Nucleated Red Blood Cells % (auto) 0.0, Prothrombin Time 12.9, Prothromb Time International Ratio 0.94, Activated Partial Thromboplast Time 29.1, Anion Gap 5L, Glomerular Filtration Rate > 60.0, Calcium Level 8.8, Total Creatine Kinase 51, Creatine Kinase MB 1.0, Creatine Kinase MB Relative Index 1.96, Troponin I High Sensitivity 4.0 09/07/21 05:55: Bedside Glucose (Misc Panel) 122H 09/07/21 08:19: Coronavirus (COVID-19)(PCR) NEGATIVE CBC/BMP Laboratory Tests 09/07/21 05:27 Home Medications Scheduled Apixaban (Eliquis) 5 Mg Tablet, 5 MG PO BID Atorvastatin Calcium (Atorvastatin Calcium) 10 Mg Tablet, 10 MG PO DAILY @ 1300 Lisinopril (Lisinopril) 5 Mg Tablet, 5 MG PO DAILY Metformin HCl (Metformin HCl ER) 500 Mg Tab.er.24h, 1,000 MG PO BID Allergies Coded Allergies: aspirin (Verified Allergy, Unknown, 09/07/21) ibuprofen (Verified Allergy, Unknown, 09/07/21) GME ATTESTATION GME ATTESTATION My faculty preceptor for this patient encounter was physically present during the encounter and was fully available. All aspects of the patient interview, examination, medical decision making process, and medical care plan development were reviewed and approved by the faculty preceptor. The faculty preceptor is a schwartz and concurs with the plan as stated in the body of this note and will attest to such by his/her cosignature. ATTENDING NOTE I, Kedar Malin, have independently examined this patient and performed my own physical exam, and verified the residents physical exam. The documentation (including HPI and medical decision making) above has been verified and edited where necessary with the resident. I have discussed in detail with the resident the findings and plan of treatment as documented by the resident and edited their note. I will continue to follow the patient during this hospital stay. Anthony Wang DO Sep 07, 2021 10:35 KEDAR MALIN MD Sep 07, 2021 14:54
[2021-09-07] MEDS ORDERED: DEXTROSE 50% 50 ML SYRINGE IV PRN ×2 (13:05→13:20)
[2021-09-07] MEDS ORDERED: GLUCOSE 4GM CHEW TABLET PO PRN ×2 (13:05→13:20)
[2021-09-07] MEDS ORDERED: GLUCAGON INJ 1MG VIAL SC PRN ×2 (13:05→13:20)
--- NOTE | 2021-09-07 13:09 | IPNPDOC ---
Date Seen The patient was seen on 09/07/21. Progress Note CHIEF COMPLAINT: Dizziness HISTORY OF PRESENT ILLNESS: Patient is a 71-year-old -[place] female who presented to the ED today (09/07/2020 514) with a 4-day history of ongoing dizziness. Describes the dizziness as feeling unbalanced, and wobbling [id number]. Says this happens every time she stands up, and never subsides, and continues if he tries to move. She had dizziness like this in the past before (last time 5 to 6 years ago), but has never experienced the episodes lasting for this long (would usually last a day). Says the dizziness is relieved when she sits down and rests, lays down, or when sleeping. She states her intake of nutrition and liquids has been normal, but has not eaten a full meal to her standard in the last 3 days. She has not tried antiantinausea medication. She denies having a history of documented vertigo. PAST MEDICAL HISTORY: 1. Pulmonary embolism (February 21, 2021), currently on Eliquis. 2. Diabetes type 2 on metformin. 3. Hypertension 4. Hyperlipidemia 5. Fibroids on uterus, fallopian tubes, ovaries. PAST SURGICAL HISTORY: 1. Hysterectomy due to fibroids. SOCIAL HISTORY: Marital status: ( the last 10 years however). 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 REVIEW OF SYSTEMS: CONSTITUTIONAL: Denies fever, chills. HEENT: Denies hearing loss, sinus issues, tinnitus. CARDIOVASCULAR: Denies chest pain, tachycardia. RESPIRATORY: Denies shortness of breath; reports cough to aid in expectorating phlegm. GASTROINTESTINAL: Denies diarrhea, or blood in stool reports nausea and vomiting-like sensation when coughs to expel phlegm. GENITOURINARY: Denies pain with urination, hematuria. MUSCULOSKELETAL: Reports feeling unsteady on legs. NEUROLOGICAL: Denies headache; reports dizziness for the last 4 days. HOME MEDICATIONS: Please see below. PHYSICAL EXAMINATION: VITAL SIGNS: Temperature 97.8, pulse 64, respiratory rate 18, blood pressure Orthostatic vitals of 136/72 supine, 161/76 sitting, 158/80 standing, pulse oximetry 100% on room air. GENERAL APPEARANCE: 71-year-old, -Australian female, lying in bed, no acute distress. HEENT: Head normocephalic atraumatic, no sinus pressure on palpation; eyes noninjected conjunctiva, EOMI but reports discomfort on extreme ends of peripheral vision and looking up and down; ears normal tympanic membrane left, wax present in right ear but does not look to be impacted. CARDIOVASCULAR: Regular rate and rhythm, no murmurs, rubs, gallops. LUNGS: CTA bilaterally. ABDOMEN: Normoactive bowel sounds, nontender to palpation no rebound tenderness or guarding. MUSCULOSKELETAL: Strength 5 out of 5 in upper and lower extremities. EXTREMITIES: No diabetic foot ulcer seen on feet, no lower extremity edema appreciated, dorsalis pedal pulses 2+. NEUROLOGICAL: Negative [id number] and Romberg test. PSYCHIATRIC: Alert and oriented x4. LABORATORY DATA: See below. IMAGING: CXR 09/07/2021: Lungs: Unremarkable. No consolidation. Pleural spaces: Unremarkable. No pleural effusion. No pneumothorax. Heart/Mediastinum: Unremarkable. No cardiomegaly. Bones/joints: Unremarkable. Head CT 09/07/2021: Brain: Normal. No hemorrhage. Unremarkable white matter. No mass effect. Cerebral ventricles: No ventriculomegaly. Paranasal sinuses: Visualized sinuses are unremarkable. No fluid levels. Mastoid air cells: Visualized mastoid air cells are well aerated. Bones/joints: Unremarkable. No acute fracture. Soft tissues: Unremarkable. MICROBIOLOGY: Please see below. ASSESSMENT: Patient is a 71-year-old -[place] female, who presented today to the ED with 4-day history of dizziness of unknown etiology. She recalls having episodes of dizziness in the past, but none of them have lasted for long. PLAN: #. Dizziness of unknown etiology -Stroke? -CT negative for any hemorrhagic pathology -MRI ordered to rule out cerebrovascular events -Patient moved to PCU on all risk precautions and telemetry -We will downgrade to MedSurg floor pending MRI results -Benign peripheral paroxysmal vertigo? -Patient denies sensation of room spinning, but does endorse dizziness with head manipulation -Per RADHA Lala, patient had a positive HINTS exam indicating peripheral vertigo -Trial of meclizine started to see if that alleviates symptoms -PT/OT eval for vestibular therapy -Ondansetron added for nausea -Metabolic etiology? -A1c of 6.8 -TSH within normal limits at 2.720 -B12 pending #. Type 2 diabetes -Hold home Metformin -Begin sliding scale with AC at bedtime #. Hypertension -Continue with Lisinopril #. Hypercholesterolemia -Continue with atorvastatin Disposition: Pending MRI results, will transition to MedSur if appropriate VS, I&O, 24H, Fishbone Vital Signs/I&O Vital Signs Date Time Temp Pulse Resp B/P (MAP) Pulse Ox O2 Delivery O2 Flow Rate FiO2 09/07/21 12:00 97.3 74 17 110/64 (79) 99 Room Air Laboratory Data 24H LABS Laboratory Tests 2 09/07/21 05:27: Immature Granulocyte % (Auto) 0.3, Neutrophils (%) (Auto) 64.2, Lymphocytes (%) (Auto) 24.6, Monocytes (%) (Auto) 8.0, Eosinophils (%) (Auto) 2.5, Basophils (%) (Auto) 0.4, Neutrophils # (Auto) 6.4, Lymphocytes # (Auto) 2.5, Monocytes # (Auto) 0.8, Eosinophils # (Auto) 0.3, Basophils # (Auto) 0.0, Nucleated Red Blood Cells % (auto) 0.0, Prothrombin Time 12.9, Prothromb Time International Ratio 0.94, Activated Partial Thromboplast Time 29.1, Anion Gap 5L, Glomerular F iltration Rate > 60.0, Calcium Level 8.8, Total Creatine Kinase 51, Creatine Kinase MB 1.0, Creatine Kinase MB Relative Index 1.96, Troponin I High Sensitivity 4.0, Thyroid Stimulating Hormone (TSH) 2.720 09/07/21 05:53: Estimated Mean Plasma Glucose 148H, Hemoglobin A1c 6.8 09/07/21 05:55: Bedside Glucose (Misc Panel) 122H 12/18/21 08:19: Coronavirus (COVID-19)(PCR) NEGATIVE CBC/BMP Laboratory Tests 09/07/21 05:27 GME ATTESTATION GME ATTESTATION My faculty preceptor for this patient encounter was physically present during the encounter and was fully available. All aspects of the patient interview, examination, medical decision making process, and medical care plan development were reviewed and approved by the faculty preceptor. The faculty preceptor is aware and concurs with the plan as stated in the body of this note and will attest to such by his/her cosignature. Anthony Wang DO Sep 07, 2021 13:09
[2021-09-07 13:56] LABS: APPEARANCE, URINE HAZY (CLEAR); BACTERIA, URINE AUTO NEGATIVE (NEGATIVE); BILIRUBIN, URINE AUTO NEGATIVE (NEGATIVE); BLOOD, URINE BLOOD NEGATIVE (NEGATIVE); COLOR, URINE YELLOW (YELLOW); GLUCOSE, URINE (UA) AUTO NEGATIVE (NEGATIVE); KETONE, URINE AUTO NEGATIVE (NEGATIVE); LEUKOCYTE ESTERASE, URINE AUTO 2+ (NEGATIVE); MUCUS, URINE SMALL (NEGATIVE); NITRITE, URINE AUTO NEGATIVE (NEGATIVE); PROTEIN, URINE AUTO NEGATIVE (NEGATIVE); RBC, URINE AUTO 1 /HPF (0-3); SPECIFIC GRAVITY URINE AUTO 1.014 (1.002-1.035); SQUAMOUS EPITHELIAL CELL UR AU 2 /HPF (0-6); UROBILINOGEN, URINE AUTO 0.2 mg/dL (0.0-2.0); WBC, URINE AUTO 25 /HPF (0-3)
--- NOTE | 2021-09-07 14:55 | REPVR ---
PROCEDURE INFORMATION: Exam: MR Head Without Contrast Exam date and time: 09/07/2021 2:02 PM Age: 71 years old Clinical indication: Dizziness TECHNIQUE: Imaging protocol: MR of the head without contrast. COMPARISON: CT Head without contrast 09/07/2021 5:34 AM FINDINGS: Brain: There is mild patchy increased T2 signal intensity within the bilateral cerebral periventricular white matter, consistent with chronic microvascular ischemic changes. There are few small focal areas of chronic ischemia in bilateral frontal, parietal and periatrial white matter. There is no abnormal diffusion weighted signal intensity to suggest an acute ischemic event. There is mild diffuse cerebral atrophy present, consistent with this patient's age. Cerebral ventricles: The ventricular system demonstrates mild diffuse compensatory enlargement. Bones/joints: Unremarkable. Paranasal sinuses: Mild mucosal thickening is seen in the paranasal sinuses. Mastoid air cells: Normal as visualized. No mastoid effusion. Orbital cavity: Unremarkable. Soft tissues: Unremarkable. IMPRESSION: 1. No acute infarction, masses or hemorrhage is seen. No acute intracranial abnormality is identified. 2. Diffuse age-related cerebral atrophy and mild chronic microvascular white matter ischemic changes, without evidence of an acute intracranial abnormality. Electronically signed by: Den Davis On 09/07/2021 14:55:26 PM
[2021-09-07 16:00] VITALS: BP 154/68
[2021-09-07] MEDS: APIXABAN 5 MG TAB (ELIQUIS) PO SCH ×2 (16:21→20:15)
[2021-09-07] MEDS: ATORVASTATIN 10 MG TAB PO SCH (16:52)
[2021-09-07] MEDS: lisinopriL 5 MG TAB PO SCH (16:52)
[2021-09-07] MEDS ORDERED: HumaLOG INSULIN (NovoLOG) PER UNIT SC SCH ×2 (17:30→21:00)
[2021-09-07 20:00] VITALS: BP 131/73
[2021-09-07] MEDS: MECLIZINE 25 MG TABLET PO PRN (20:15)
[2021-09-07 20:39] VITALS: BP 158/84
[2021-09-08] MEDS: MECLIZINE 25 MG TABLET PO PRN ×2 (05:51→13:09)
[2021-09-08 06:00] VITALS: BP 148/66
[2021-09-08 07:37] LABS: BASO % 0.4 % (0.0-1.0); EOS # 0.3 10^3/uL (0.0-0.5); EOS % 3.4 % (0.0-3.0); HEMATOCRIT 44.8 % (36.0-47.0); HEMOGLOBIN 14.5 g/dl (12.0-15.5); LYMPH # 2.4 10^3/uL (1.5-5.0); LYMPH % 25.6 % (24.0-44.0); MEAN CORPUSCULAR HEMOGLOBIN 26.8 pg (27.0-33.0); MEAN CORPUSCULAR HGB CONC 32.4 g/dl (32.0-36.5); MEAN CORPUSCULAR VOLUME 82.8 fl (80.0-96.0); MONO # 0.8 10^3/uL (0.0-0.8); MONO % 8.4 % (2.0-8.0); NEUTROPHILS # 5.7 10^3/uL (1.5-8.5); NEUTROPHILS % 61.9 % (36.0-66.0); PLATELET COUNT, AUTOMATED 263 10^3/uL (150-450); RED BLOOD COUNT 5.41 10^6/uL (4.00-5.40); WHITE BLOOD COUNT 9.2 10^3/uL (4.0-10.0)
[2021-09-08 07:58] LABS: BLOOD UREA NITROGEN 10 MG/DL (7-18); CALCIUM LEVEL 8.7 MG/DL (8.8-10.2); CARBON DIOXIDE LEVEL 25 MEQ/L (21-32); CHLORIDE LEVEL 110 MEQ/L (98-107); GLOMERULAR FILTRATION RATE > 60.0 (>39); GLUCOSE, FASTING 201 MG/DL (70-100); POTASSIUM SERUM 4.1 MEQ/L (3.5-5.1); SODIUM LEVEL 143 MEQ/L (136-145)
[2021-09-08] MEDS: DOCUSATE SODIUM 100MG CAPSULE PO SCH ×2 (08:51→22:05)
[2021-09-08] MEDS: HumaLOG INSULIN (NovoLOG) PER UNIT SC SCH ×4 (08:51→22:00)
[2021-09-08] MEDS: APIXABAN 5 MG TAB (ELIQUIS) PO SCH ×2 (08:52→22:04)
[2021-09-08 09:02] VITALS: BP 135/70
[2021-09-08] MEDS: lisinopriL 5 MG TAB PO SCH (09:02)
--- NOTE | 2021-09-08 09:18 | IPNPDOC ---
Text Note Date of Service The patient was seen on 09/08/21. NOTE Subjective: Patient is a 71-year-old female with a PMHx of HTN, DLP, NIDDM2, PE (on Eliquis) who presented to the ER on 09/07 with vertigo-like s ymptoms. Patient was admitted to the hospital service for further evaluation and treatment. Patient was seen and examined at the bedside. , Patient has reported improvement of symptoms. Patient has worked with physical therapy today and has been cleared for discharge home with outpatient therapy. Patient denies any chest pain, shortness breath, palpitations, nausea, vomiting, abdominal pain, denies any constipation, diarrhea Objective: Vitals (See below) General: Lying in bed, appears comfortable, AAOx3 HEENT: NC, AT CVS: +S1S2 Lungs: Fair air entry b/l, no evidence of wheezing, rales or rhonchi Abdomen: Soft, nondistended and nontender Extremities: Lower extremities are without any edema Imaging: CXR 09/07: No acute findings. CT Head 09/07: No acute intracranial abnormality. MRI Brain 09/07: 1. No acute infarction, masses or hemorrhage is seen. No acute intracranial abnormality is identified. 2. Diffuse age-related cerebral atrophy and mild chronic microvascular white matter ischemic changes, without evidence of an acute intracranial abnormality. Assessment and plan: Vertigo - likely 2/2 peripheral etiology (likely 2/2 BPPV) - Clinically patient has reported improvement of her symptoms - Imaging noted above - c/w Meclizine PRN - c/w PT and OT; awaiting vestibular therapy NIDDM2 - c/w ISS while inpatient HTN - c/w Lisinopril with hold parameters DLP - c/w Atorvastatin Pulmonary Embolism (Dx: 02/2021) - c/w full anticoagulation with Eliquis GI prophylaxis - c/w DVT prophylaxis - c/w full anticoagulation with Eliquis Disposition: - PT / OT cleared for DC home - DC home tomorrow after vestibular therapy VSSoy, I+O VSSoy, I+O Laboratory Tests 09/08/21 07:17 Vital Signs Date Time Temp Pulse Resp B/P (MAP) Pulse Ox O2 Delivery O2 Flow Rate FiO2 09/08/21 09:02 135/70 09/08/21 06:00 98.9 72 16 99 Room Air I&O- Last 24 Hours up to 6 AM 09/08/21 06:00 Intake Total 1880 ml Output Total 1300 ml Balance 580 ml LINDEN SANTOS MD Sep 08, 2021 09:18
[2021-09-08] MEDS: ATORVASTATIN 10 MG TAB PO SCH (11:57)
[2021-09-08] MEDS ORDERED: NS 1,000 ML IV SCH (13:00)
[2021-09-08 14:00] VITALS: BP 150/69
--- NOTE | 2021-09-08 19:23 | ECGEPIP ---
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
[2021-09-08 22:00] VITALS: BP 146/68
[2021-09-09 06:00] VITALS: BP 146/74
[2021-09-09] MEDS: HumaLOG INSULIN (NovoLOG) PER UNIT SC SCH ×3 (08:45→17:17)
[2021-09-09] MEDS: DOCUSATE SODIUM 100MG CAPSULE PO SCH (08:45)
[2021-09-09] MEDS: lisinopriL 5 MG TAB PO SCH (08:46)
[2021-09-09] MEDS: APIXABAN 5 MG TAB (ELIQUIS) PO SCH (08:46)
[2021-09-09 10:15] LABS: VITAMIN B12 LEVEL 299 PG/ML (247-911)
[2021-09-09] MEDS ORDERED: MECL-86 PO (12:33)
[2021-09-09] MEDS ORDERED: ROLLMIS8 XX (12:33)
--- NOTE | 2021-09-09 12:55 | DS.PDOC ---
Discharge Summary General Date of Admission Sep 07, 2021 at 08:14 Date of Discharge Sep 09, 2021 Primary Care Physician: Becca Santiago MD Attending Physician: KEDAR SANTOS MD Discharge Summary PROCEDURES PERFORMED DURING STAY: [None]. ADMITTING DIAGNOSES: 1. Dizziness 2. Type 2 diabetes hypertension 3. Hypertension 4. Hypercholesterolemia 5. Status post pulmonary embolism February 21, 2021 DISCHARGE DIAGNOSES: 1. Dizziness -vertigo 2. Type 2 diabetes hypertension 3. Hypertension 4. Hypercholesterolemia 5. Status post pulmonary embolism February 21, 2021 COMPLICATIONS/CHIEF COMPLAINT: Vertigo. HISTORY OF PRESENT ILLNESS: Patient is a 71-year-old -[place] female who presented to the ED on 09/07/2021 with a 4-day history of ongoing dizziness. Describes the dizziness as feeling unbalanced and wobbly when standing up and continuing with motion. Subsides when he lies down or sleeping. Has experienced past episodes of dizziness (5 to 6 years ago), but has never had them last this long. She denies documented history of vertigo. HOSPITAL COURSE: 09/07/2021: Presented to the ED after 4-day history of dizziness. Was given ondansetron and IV fluids. Was admitted for further evaluation and management. Imaging was negative for any intracranial bleeds/pathology. Labs were also negative for any metabolic or hematologic reason for dizziness. 09/08/2021: Patient reported improvements in symptoms and was able to work with physical therapy who deemed the patient safe for discharge. Vestibular therapy again to see patient. 09/09/2021: Patient reported that because meclizine was sent to as needed, she forgot to requested when the nurses came in. Has been cleared by vestibular therapy; meclizine was sent to pharmacy. Patient has been cleared by PT on a walker; she notes she feels more steady on it when ambulating. DISCHARGE MEDICATIONS: Please see below. ALLERGIES: Please see below. PHYSICAL EXAMINATION ON DISCHARGE: VITAL SIGNS: Please see below. GENERAL: 1-year-old, no acute distress, lying in bed, no acute distress HEENT: Normocephalic atraumatic, eyes still endorses some discomfort on extreme ends of peripheral vision, and when looks up CARDIOVASCULAR EXAMINATION: Regular rate and rhythm RESPIRATORY EXAMINATION: CTA bilaterally ABDOMINAL EXAMINATION: Normoactive bowel sounds nontender to palpation EXTREMITIES: No lower extremity edema appreciated NEUROLOGICAL EXAMINATION: No gross deficits appreciated LABORATORY DATA: Please see below. IMAGING: CXR 09/07: No acute findings. CT Head 09/07: No acute intracranial abnormality. MRI Brain 09/07: 1. No acute infarction, masses or hemorrhage is seen. No acute intracranial abnormality is identified. 2. Diffuse age-related cerebral atrophy and mild chronic microvascular white matter ischemic changes, without evidence of an acute intracranial abnormality. PROGNOSIS: Improved ACTIVITY: [As tolerated]. DIET: As tolerated DISPOSITION: Home DISCHARGE INSTRUCTIONS AND ITEMS TO FOLLOW-UP ON OUTPATIENT: 1. Take meclizine as directed 2. Continue home medications as directed 3. Continue using walker for ambulation until able to follow-up with primary care provider you should assess ambulatory status 4. If symptoms worsen, return to ED 5. Thank you for allowing us the opportunity to be part of your care DISCHARGE CONDITION: [Stable]. TIME SPENT ON DISCHARGE: 35 minutes. Vital Signs/I&Os Vital Signs Date Time Temp Pulse Resp B/P (MAP) Pulse Ox O2 Delivery O2 Flow Rate FiO2 09/09/21 06:00 97.2 67 16 146/74 (98) 100 Room Air I&O- Last 24 Hours up to 6 AM 09/09/21 06:00 Intake Total 1760 ml Output Total 150 ml Balance 1610 ml Laboratory Data Labs 24H Laboratory Tests 2 09/08/21 16:26: Bedside Glucose (Misc Panel) 147H 09/08/21 20:12: Bedside Glucose (Misc Panel) 164H 09/09/21 06:17: Bedside Glucose (Misc Panel) 119H 09/09/21 11:32: Bedside Glucose (Misc Panel) 160H FSBS Laboratory Tests Test 09/08/21 16:26 09/08/21 20:12 09/09/21 06:17 09/09/21 11:32 Range/Units Bedside Glucose (Misc Panel) 147 164 119 160 83-110 MG/DL Discharge Medications Scheduled Apixaban (Eliquis) 5 Mg Tablet, 5 MG PO BID, (Reported) Atorvastatin Calcium (Atorvastatin Calcium) 10 Mg Tablet, 10 MG PO DAILY, (Reported) @ 1300 Lisinopril (Lisinopril) 5 Mg Tablet, 5 MG PO DAILY, (Reported) Metformin HCl (Metformin HCl ER) 500 Mg Tab.er.24h, 1,000 MG PO BID, (Reported) Scheduled PRN Meclizine HCl (Meclizine HCl) 25 Mg Tablet, 25 MG PO Q6H PRN for dizziness Allergies Coded Allergies: aspirin (Verified Allergy, Unknown, 09/07/21) ibuprofen (Verified Allergy, Unknown, 09/07/21) GME ATTESTATION GME ATTESTATION My faculty preceptor for this patient encounter was physically present during the encounter and was fully available. All aspects of the patient interview, examination, medical decision making process, and medical care plan development were reviewed and approved by the faculty preceptor. The faculty preceptor is aware and concurs with the plan as stated in the body of this note and will attest to such by his/her cosignature. ATTENDING NOTE I, Kedar Santos, have independently examined this patient and performed my own physical exam, and verified the residents physical exam. The documentation (including HPI and medical decision making) above has been verified and edited where necessary with the resident. I have discussed in detail with the resident the findings and plan of treatment as documented by the resident and edited their note. I will continue to follow the patient during this hospital stay. Time spent on discharge 20 minutes Anthony Wang DO Sep 09, 2021 12:54 KEDAR SANTOS MD Sep 09, 2021 15:37
[2021-09-09] MEDS: ATORVASTATIN 10 MG TAB PO SCH (12:59)
== END 2021-09-09 18:31 | disposition home or self-care (01) ==
LOC: M ED 05:20 → M ED INP 08:14 → M PCU 10:41 → M MSPAV 20:38
PROVIDERS: ADMIT Internal Medicine; ATTEND Internal Medicine
DX: R42 Dizziness and giddiness (principal); E11.9 Type 2 diabetes mellitus without complications; I10 Essential (primary) hypertension; E78.00 Pure hypercholesterolemia, unspecified; Z86.711 Personal history of pulmonary embolism; I67.82 Cerebral ischemia; G31.1 Senile degeneration of brain, not elsewhere classified; R26.81 Unsteadiness on feet; Z79.899 Other long term (current) drug therapy; Z79.01 Long term (current) use of anticoagulants; Z79.84 Long term (current) use of oral hypoglycemic drugs; Z88.6 Allergy status to analgesic agent; Z87.891 Personal history of nicotine dependence
CPT/HCPCS: 36415; 70450; 70551; 71045; 80048; 81001; 82550; 82553; 82607; 83036; 84443; 84484; 85025; 85610; 85730; 93005; 93041; 94760; 96361; 96374; 97112; 97116; 97161; 97165; 97530; 99285; G0378; J2405; U0002

== ENCOUNTER → 2021-11-24 | Outpatient (CLI) | payer MEDICARE, OTHER ==
[~2021-11-24] MED LIST changes: +ATOR1TAB19 PO; -FLUC200T2 PO; +FLUC200T4 PO; +LISI5TAB11 PO; +MECL-86 PO; +ROLLMIS8 XX
[2021-11-24 15:34] LABS: HEMOGLOBIN A1c 6.9 %
== END ==
LOC: M LAB 13:38
PROVIDERS: ATTEND Family Medicine
DX: E11.65 Type 2 diabetes mellitus with hyperglycemia (principal)

== ENCOUNTER → 2022-06-04 | Outpatient (CLI) | payer MEDICARE, OTHER ==
[2022-06-04 08:47] LABS: BASO % 0.5 % (0.0-1.0); EOS # 0.3 10^3/uL (0.0-0.5); EOS % 3.8 % (0.0-3.0); HEMATOCRIT 42.2 % (36.0-47.0); HEMOGLOBIN 13.8 g/dl (12.0-15.5); LYMPH # 3.2 10^3/uL (1.5-5.0); LYMPH % 37.7 % (24.0-44.0); MEAN CORPUSCULAR HEMOGLOBIN 27.4 pg (27.0-33.0); MEAN CORPUSCULAR HGB CONC 32.7 g/dl (32.0-36.5); MEAN CORPUSCULAR VOLUME 83.7 fl (80.0-96.0); MONO # 0.5 10^3/uL (0.0-0.8); MONO % 6.5 % (2.0-8.0); NEUTROPHILS # 4.3 10^3/uL (1.5-8.5); NEUTROPHILS % 51.3 % (36.0-66.0); PLATELET COUNT, AUTOMATED 282 10^3/uL (150-450); RED BLOOD COUNT 5.04 10^6/uL (4.00-5.40); WHITE BLOOD COUNT 8.4 10^3/uL (4.0-10.0)
[2022-06-04 09:12] LABS: ALBUMIN 3.5 GM/DL (3.2-5.2); ALT/SGPT 20 U/L (12-78); BILIRUBIN,TOTAL 0.8 MG/DL (0.2-1.0); BLOOD UREA NITROGEN 11 MG/DL (7-18); CALCIUM LEVEL 9.5 MG/DL (8.8-10.2); CARBON DIOXIDE LEVEL 30 MEQ/L (21-32); CHLORIDE LEVEL 107 MEQ/L (98-107); CHOLESTEROL LEVEL 218 MG/DL (<200); CHOLESTEROL RISK RATIO 3.573 (<5); CREATININE FOR GFR 0.86 MG/DL (0.55-1.30); GLOMERULAR FILTRATION RATE > 60.0 (>39); GLUCOSE, FASTING 111 MG/DL (70-100); HDL CHOLESTEROL 61 MG/DL (>40); LDL CHOLESTEROL 136 MG/DL (<100); NON-HDL-C 157 MG/DL; POTASSIUM SERUM 4.3 MEQ/L (3.5-5.1); SODIUM LEVEL 141 MEQ/L (136-145); TOTAL PROTEIN 6.8 GM/DL (6.4-8.2); TRIGLYCERIDES LEVEL 107 MG/DL (<150)
[2022-06-04 09:22] LABS: MALB URINE SIEMENS 5.9 MG/L; MAU/CREAT RATIO 7.3 MCG/MG (0.0-30.0)
[2022-06-04 10:15] LABS: HEMOGLOBIN A1c 6.7 %
== END ==
LOC: M LAB 08:12
PROVIDERS: ATTEND Nurse Practitioner Family
DX: E11.65 Type 2 diabetes mellitus with hyperglycemia (principal); E78.2 Mixed hyperlipidemia

== ENCOUNTER → 2022-08-27 | Outpatient (CLI) | payer MEDICARE, OTHER ==
[2022-08-27 07:33] LABS: BASO % 0.3 % (0.0-1.0); EOS # 0.2 10^3/uL (0.0-0.5); EOS % 2.5 % (0.0-3.0); HEMATOCRIT 41.3 % (36.0-47.0); HEMOGLOBIN 13.5 g/dl (12.0-15.5); MEAN CORPUSCULAR HEMOGLOBIN 27.2 pg (27.0-33.0); MEAN CORPUSCULAR HGB CONC 32.7 g/dl (32.0-36.5); MEAN CORPUSCULAR VOLUME 83.1 fl (80.0-96.0); MONO # 0.7 10^3/uL (0.0-0.8); MONO % 7.3 % (2.0-8.0); NEUTROPHILS # 5.4 10^3/uL (1.5-8.5); NEUTROPHILS % 57.6 % (36.0-66.0); PLATELET COUNT, AUTOMATED 303 10^3/uL (150-450); RED BLOOD COUNT 4.97 10^6/uL (4.00-5.40); WHITE BLOOD COUNT 9.5 10^3/uL (4.0-10.0)
[2022-08-27 09:28] LABS: CREATININE, URINE 136.7 MG/DL
[2022-08-27 09:29] LABS: MALB URINE SIEMENS < 5.0 MG/DL; MAU/CREAT RATIO 3.6 MCG/MG (0.0-30.0)
[2022-08-27 09:34] LABS: ALBUMIN 3.7 G/DL (3.2-5.2); ALKALINE PHOSPHATASE 72 U/L (46-116); ALT/SGPT 14 U/L (7.0-40); AST/SGOT 17 U/L (<34); BILIRUBIN,TOTAL 0.9 MG/DL (0.3-1.2); BLOOD UREA NITROGEN 13 MG/DL (9-23); CALCIUM LEVEL 9.3 MG/DL (8.3-10.6); CARBON DIOXIDE LEVEL 28 MMOL/L (20-31); CHLORIDE LEVEL 105 MMOL/L (98-107); CHOLESTEROL LEVEL 158 MG/DL (<200); CHOLESTEROL RISK RATIO 3.05 (<5); GLOMERULAR FILTRATION RATE > 60.0 (>39); GLUCOSE, FASTING 94 MG/DL (74-106); HDL CHOLESTEROL 51.7 MG/DL (>40); LDL CHOLESTEROL 95.1 MG/DL (<100); NON-HDL-C 106 MG/DL; SODIUM LEVEL 140 MMOL/L (136-145); TOTAL PROTEIN 6.6 G/DL (5.7-8.2); TRIGLYCERIDES LEVEL 56 MG/DL (<150)
== END ==
LOC: M LAB 06:51
PROVIDERS: ATTEND Family Medicine
DX: E11.65 Type 2 diabetes mellitus with hyperglycemia (principal)

== ENCOUNTER → 2022-11-25 | Outpatient (CLI) | payer MEDICARE, OTHER ==
[2022-11-25 11:02] LABS: BASO % 0.5 % (0.0-1.0); EOS # 0.2 10^3/uL (0.0-0.5); EOS % 2.6 % (0.0-3.0); HEMATOCRIT 41.1 % (36.0-47.0); HEMOGLOBIN 13.2 g/dl (12.0-15.5); LYMPH # 2.7 10^3/uL (1.5-5.0); LYMPH % 33.8 % (24.0-44.0); MEAN CORPUSCULAR HEMOGLOBIN 27.3 pg (27.0-33.0); MEAN CORPUSCULAR HGB CONC 32.1 g/dl (32.0-36.5); MEAN CORPUSCULAR VOLUME 85.1 fl (80.0-96.0); MONO # 0.6 10^3/uL (0.0-0.8); MONO % 8.1 % (2.0-8.0); NEUTROPHILS # 4.4 10^3/uL (1.5-8.5); NEUTROPHILS % 54.7 % (36.0-66.0); PLATELET COUNT, AUTOMATED 264 10^3/uL (150-450); RED BLOOD COUNT 4.83 10^6/uL (4.00-5.40)
[2022-11-25 11:16] LABS: ALBUMIN 3.4 G/DL (3.2-5.2); ALKALINE PHOSPHATASE 80 U/L (46-116); ALT/SGPT 21 U/L (7.0-40); AST/SGOT 16 U/L (<34); BILIRUBIN,TOTAL 0.9 MG/DL (0.3-1.2); BLOOD UREA NITROGEN 11 MG/DL (9-23); CALCIUM LEVEL 8.9 MG/DL (8.3-10.6); CARBON DIOXIDE LEVEL 30 MMOL/L (20-31); CHLORIDE LEVEL 105 MMOL/L (98-107); CHOLESTEROL LEVEL 163 MG/DL (<200); CHOLESTEROL RISK RATIO 2.78 (<5); CREATININE FOR GFR 0.77 MG/DL (0.55-1.30); GLOMERULAR FILTRATION RATE > 60.0 (>39); GLUCOSE, FASTING 105 MG/DL (74-106); HDL CHOLESTEROL 58.5 MG/DL (>40); LDL CHOLESTEROL 90.5 MG/DL (<100); NON-HDL-C 105 MG/DL; POTASSIUM SERUM 4.1 MMOL/L (3.5-5.1); SODIUM LEVEL 141 MMOL/L (136-145); TOTAL PROTEIN 6.4 G/DL (5.7-8.2); TRIGLYCERIDES LEVEL 70 MG/DL (<150)
[2022-11-25 12:05] LABS: HEMOGLOBIN A1c 6.5 % (4.0-6.0)
[2022-11-25 12:10] LABS: CREATININE, URINE 89.5 MG/DL; MAU/CREAT RATIO 7.8 MCG/MG (0.0-30.0)
== END ==
LOC: M LAB 08:59
PROVIDERS: ATTEND Family Medicine
DX: E11.65 Type 2 diabetes mellitus with hyperglycemia (principal)

== ENCOUNTER → 2023-06-30 | Outpatient (CLI) | payer MEDICARE, OTHER ==
[~2023-06-30] MED LIST changes: +THERTAB52 PO
[2023-06-30 14:05] LABS: HEMOGLOBIN A1c 6.6 % (4.0-6.0)
== END ==
LOC: M LAB 13:23
PROVIDERS: ATTEND Family Medicine
DX: E11.65 Type 2 diabetes mellitus with hyperglycemia (principal)

== ENCOUNTER 2023-07-13 06:20 | Day surgery (SDC) | payer MEDICARE, OTHER ==
[~2023-07-13] VITALS: Ht 160 cm; Wt 65.5 kg
[~2023-07-13 06:20] MED LIST changes: +CYCLOPENTOLATE 1% OPHTH SOLN 2ML BTL OD SCH; +LR 1,000 ML IV SCH; +PHENYLEPHRINE 2.5% OPHTH SOL 2ML OD SCH; +TETRACAINE 0.5% OPHTH SOLN 4ML OD SCH
[2023-07-13] MEDS ORDERED: LIDOCAINE 1% SDV 5ML VIAL As Ordered ONE (06:39)
[2023-07-13] MEDS ORDERED: LR 1,000 ML IV SCH (07:00)
[2023-07-13] MEDS ORDERED: MIDAZOLAM INJ 2MG/2ML VIAL As Ordered ONE (07:06)
[2023-07-13] MEDS ORDERED: fentaNYL 100 MCG/2 ML INJECTION As Ordered ONE (07:07)
[2023-07-13] MEDS ORDERED: FLURBIPROFEN 0.03% OPHTH SOLN 2.5 ML OD SCH (07:20)
[2023-07-13] MEDS ORDERED: hydrALAZINE 20MG/ML 1ML VIAL As Ordered ONE (07:39)
[2023-07-13] MEDS ORDERED: CEFUROXIME 1MG/0.1ML INTRACAMERAL INJ As Ordered ONE (07:47)
[2023-07-13 08:07] VITALS: BP 138/72; TEMP 98; O2SAT 100
== END 2023-07-13 08:15 | disposition home or self-care (01) ==
LOC: M SDC 06:20
PROVIDERS: ATTEND Ophthalmology
DX: H25.11 Age-related nuclear cataract, right eye (principal); E11.9 Type 2 diabetes mellitus without complications; I10 Essential (primary) hypertension; E78.00 Pure hypercholesterolemia, unspecified; Z88.8 Allergy status to other drugs, medicaments and biological substances; Z88.6 Allergy status to analgesic agent; Z79.899 Other long term (current) drug therapy; Z79.84 Long term (current) use of oral hypoglycemic drugs; Z86.711 Personal history of pulmonary embolism
CPT/HCPCS: 66984; J0360; J0697; J2250; J3010; V2632